=== PATIENT | female | born 1945 | race Caucasian/White ===

== ENCOUNTER 2018-11-17 11:45 | Inpatient (IN) | payer OTHER ==
[2018-11-17 12:23] LABS: ADD MAN DIFF? NO
[2018-11-17 12:29] LABS: BASOPHIL # 0.1 10^3/ul (0.0-0.1); BASOPHILS % 0.9 % (0.0-2.0); EOSINOPHILS % 0.1 % (0.0-7.0); HEMATOCRIT 42.4 % (37.0-47.0); HEMOGLOBIN 13.7 g/dl (12.0-16.0); LYMPHOCYTES # 0.7 10^3/ul (0.8-2.9); LYMPHOCYTES % 6.1 % (15.0-51.0); MEAN CORPUSCULAR HEMOGLOBIN 27.2 pg (29.0-33.0); MEAN CORPUSCULAR HGB CONC 32.3 g/dl (32.0-37.0); MEAN CORPUSCULAR VOLUME 84.1 fl (82.0-101.0); MEAN PLATELET VOLUME 11.6 fl (7.4-10.4); MONOCYTE # 0.6 10^3/ul (0.3-0.9); MONOCYTES % 4.6 % (0.0-11.0); NEUTROPHIL # 10.5 10^3/ul (1.6-7.5); NEUTROPHILS % 87.2 % (39.0-77.0); PLATELET COUNT 136 10^3/UL (140-415); RED BLOOD COUNT 5.04 10^6/ul (4.20-5.40); RED CELL DISTRIBUTION WIDTH 16.1 % (11.5-14.5)
[2018-11-17 12:32] LABS: INR 1.02; PROTIME 13.5 Sec (11.9-14.9); PT RATIO 1.1
[2018-11-17] MEDS: SODIUM CHLORIDE 0.9% 1L BAG IV* (12:32)
[2018-11-17 12:33] LABS: PARTIAL THROMBOPLASTIN TIME 29.2 Sec (23.0-35.0)
[2018-11-17] MEDS: CEFEPIME 2GM/50 ML (PMX) 50 ML IVPB (12:33)
[2018-11-17 12:34] LABS: ALANINE AMINOTRANSFERASE 19 IU/L (13-69); ALBUMIN 3.3 g/dl (3.3-4.9); ALBUMIN/GLOBULIN RATIO 0.89; ALKALINE PHOSPHATASE 133 IU/L (42-121); ANION GAP 11 (5-13); ASPARTATE AMINO TRANSFERASE 28 IU/L (15-46); BILIRUBIN,INDIRECT 0.6 mg/dl (0-1.1); BILIRUBIN,TOTAL 0.6 mg/dl (0.2-1.3); BLOOD UREA NITROGEN 16 mg/dl (7-20); CALCIUM 9.3 mg/dl (8.4-10.2); CARBON DIOXIDE 22 mmol/L (21-31); CHLORIDE 103 mmol/L (97-110); CREATININE 0.69 mg/dl (0.44-1.00); GLUCOSE 165 mg/dl (70-220); POTASSIUM 3.8 mmol/L (3.5-5.1); SODIUM 136 mmol/L (135-144)
[2018-11-17 12:40] LABS: POSITIVE DIFF @See below
[2018-11-17 12:49] LABS: TROPONIN-I 0.662 ng/ml (0.000-0.120)
[2018-11-17 14:05] LABS: ANISOCYTOSIS 1+ (0-0); BAND NEUTROPHILS #M 2.5 10^3/ul (0.0-0.6); BAND NEUTROPHILS % (M) 21 % (0-4); LYMPHOCYTES #M 0.1 10^3/ul (0.8-2.9); LYMPHOCYTES % (M) 1 % (15-51); MICROCYTOSIS 1+ (0-0); MONOCYTE #M 0.2 10^3/ul (0.3-0.9); MONOCYTES % (M) 2 % (0-11); PLATELET ESTIMATE NORMAL; POIKILOCYTOSIS 1+ (0-0); POLYCHROMASIA 1+ (0-0); REACTIVE LYMPHOCYTES #M 0.1 10^3/ul (0.0-0.0); REACTIVE LYMPHOCYTES% (M) 1 % (0-0); SEG NEUT #M 9.3 10^3/ul (1.6-7.5); SEGMENTED NEUTROPHILS (M) % 75 % (39-77); SMUDGE%M 6 % (0-0)
[2018-11-17] MEDS: VANCOMYCIN 1 GM (PMX) 250 ML IVPB (14:07)
[2018-11-17] MEDS: ENOXAPARIN 40 MG/0.4 ML SYG SC (14:08)
[2018-11-17 15:00] LABS: URINE BLOOD (Dip) POC Trace-intact (NEGATIVE); URINE GLUCOSE (Dip) POC Negative (NEGATIVE); URINE KETONES (Dip) POC Trace (NEGATIVE); URINE LEUKOCYTE EST (Dip) POC Negative (NEGATIVE); URINE NITRITE (Dip) POC Negative (NEGATIVE); URINE TOTAL PROTEIN POC 2+ (NEGATIVE)
[2018-11-17 15:19] LABS: ADD UMIC YES; UR ASCORBIC ACID NEGATIVE (NEGATIVE); UR BILIRUBIN (Dip) NEGATIVE (NEGATIVE); UR BLOOD (Dip) NEGATIVE (NEGATIVE); UR CLARITY CLEAR (CLEAR); UR COLOR YELLOW (YELLOW); UR GLUCOSE (Dip) NEGATIVE (NEGATIVE); UR KETONES (Dip) TRACE mg/dL (NEGATIVE); UR LEUKOCYTE ESTERASE (Dip) NEGATIVE Leu/ul (NEGATIVE); UR MUCUS FEW /HPF (NONE SEEN); UR NITRITE (Dip) NEGATIVE (NEGATIVE); UR RBC 1 /HPF (0-5); UR SPECIFIC GRAVITY (Dip) 1.016 (1.003-1.030); UR TOTAL PROTEIN (Dip) 1+ mg/dl (NEGATIVE); UR UROBILINOGEN (Dip) NEGATIVE (NEGATIVE); UR WBC 2 /HPF (0-5)
[2018-11-17 16:53] LABS: LACTIC ACID 0.9 mmol/L (0.5-2.0)
[2018-11-17] MEDS ORDERED: SOD CHLORIDE 0.9% 1,000 ML IV (18:10)
[2018-11-17] MEDS ORDERED: ACETAMINOPHEN 325 MG TAB PO (18:30)
[2018-11-17] MEDS ORDERED: ZOLPIDEM 5 MG TAB PO (18:30)
[2018-11-17] MEDS ORDERED: ONDANSETRON 4 MG INJ IV (18:30)
[2018-11-17] MEDS: SOD CHLORIDE 0.9% 1,000 ML IV (21:16)
[2018-11-18] MEDS ORDERED: LEVOTHYROXINE 75 MCG TAB (05:31)
[2018-11-18] MEDS: LEVOTHYROXINE 75 MCG TAB PO (05:57)
[2018-11-18 06:24] LABS: HEMATOCRIT 35.6 % (37.0-47.0); HEMOGLOBIN 11.3 g/dl (12.0-16.0); MEAN CORPUSCULAR HEMOGLOBIN 27.2 pg (29.0-33.0); MEAN CORPUSCULAR HGB CONC 31.7 g/dl (32.0-37.0); MEAN CORPUSCULAR VOLUME 85.8 fl (82.0-101.0); MEAN PLATELET VOLUME 12.8 fl (7.4-10.4); PLATELET COUNT 131 10^3/UL (140-415); RED BLOOD COUNT 4.15 10^6/ul (4.20-5.40); RED CELL DISTRIBUTION WIDTH 16.4 % (11.5-14.5)
[2018-11-18 06:24] LABS: WHITE BLOOD COUNT 8.6 10^3/ul (4.8-10.8)
[2018-11-18 06:48] LABS: POSITIVE DIFF @See below
[2018-11-18 06:49] LABS: ADD MAN DIFF? YES
[2018-11-18 07:05] LABS: ANION GAP 10 (5-13); BLOOD UREA NITROGEN 14 mg/dl (7-20); CALCIUM 8.5 mg/dl (8.4-10.2); CARBON DIOXIDE 20 mmol/L (21-31); CHLORIDE 111 mmol/L (97-110); CREATININE 0.63 mg/dl (0.44-1.00); GLUCOSE 98 mg/dl (70-220); POTASSIUM 3.2 mmol/L (3.5-5.1); SODIUM 141 mmol/L (135-144)
[2018-11-18] MEDS ORDERED: VANCOMYCIN 1 GM (PMX) 250 ML IVPB (09:00)
[2018-11-18] MEDS ORDERED: VANCOMYCIN IV PER PHARMACY XX (09:00)
[2018-11-18] MEDS ORDERED: CEFTRIAXONE 1 GM/50 ML (PMX) 50 ML IVPB (09:00)
[2018-11-18 09:40] LABS: TROPONIN-I 0.362 ng/ml (0.000-0.120)
[2018-11-18] MEDS: ACETAMINOPHEN 325 MG TAB PO (10:10)
[2018-11-18] MEDS: POTASSIUM CHLORIDE (SR) 20 MEQ TAB PO (10:11)
[2018-11-18 10:27] LABS: ANISOCYTOSIS 1+ (0-0); BAND NEUTROPHILS #M 0.6 10^3/ul (0.0-0.6); BAND NEUTROPHILS % (M) 7 % (0-4); BURR CELLS 1+ (0-0); LYMPHOCYTES #M 0.7 10^3/ul (0.8-2.9); LYMPHOCYTES % (M) 9 % (15-51); MONOCYTE #M 0.5 10^3/ul (0.3-0.9); MONOCYTES % (M) 6 % (0-11); MYELOCYTES % (M) 1 % (0-0); PLATELET ESTIMATE NORMAL; REACTIVE LYMPHOCYTES% (M) 1 % (0-0); SEG NEUT #M 6.6 10^3/ul (1.6-7.5); SEGMENTED NEUTROPHILS (M) % 76 % (39-77); SMUDGE%M 12 % (0-0)
[2018-11-18] MEDS: POTASSIUM CHLORIDE 30 MEQ in SOD CHLORIDE 0.9% 1,000 ML IV ×2 (10:52→23:02)
[2018-11-18] MEDS: ASPIRIN 81 MG TAB PO (13:02)
[2018-11-18] MEDS: VANCOMYCIN 750 MG (PMX) 250 ML IVPB (14:03)
[2018-11-19] MEDS: ASPIRIN 81 MG TAB PO (08:12)
[2018-11-19] MEDS: LEVOTHYROXINE 75 MCG TAB PO (08:12)
[2018-11-19] MEDS: POTASSIUM CHLORIDE 30 MEQ in SOD CHLORIDE 0.9% 1,000 ML IV (12:34)
[2018-11-19] MEDS: VANCOMYCIN 750 MG (PMX) 250 ML IVPB (15:16)
[2018-11-20] MEDS: POTASSIUM CHLORIDE 30 MEQ in SOD CHLORIDE 0.9% 1,000 ML IV ×2 (02:06→15:38)
[2018-11-20] MEDS: LEVOTHYROXINE 75 MCG TAB PO (07:11)
[2018-11-20 07:16] LABS: ANION GAP 6 (5-13); BLOOD UREA NITROGEN 9 mg/dl (7-20); CALCIUM 8.3 mg/dl (8.4-10.2); CARBON DIOXIDE 21 mmol/L (21-31); CHLORIDE 115 mmol/L (97-110); CREATININE 0.58 mg/dl (0.44-1.00); GLUCOSE 104 mg/dl (70-220); POTASSIUM 4.1 mmol/L (3.5-5.1); SODIUM 142 mmol/L (135-144)
[2018-11-20] MEDS: ASPIRIN 81 MG TAB PO (09:06)
[2018-11-20] MEDS ORDERED: LIDOCAINE 1% (MPF) 5 ML VIAL SC (11:30)
[2018-11-20 13:59] LABS: VANCOMYCIN,TROUGH 8.4 ug/ml (10.0-20.0)
[2018-11-20] MEDS: VANCOMYCIN 1 GM 250 ML IVPB (15:39)
[2018-11-20] MEDS: CEFTRIAXONE 1 GM/50 ML (PMX) 50 ML IVPB (17:50)
[2018-11-20] MEDS: ATORVASTATIN 20 MG TAB PO (21:28)
[2018-11-20] MEDS: LACTOBACILLUS RHAMNOSUS CAP PO (21:28)
[2018-11-21] MEDS: POTASSIUM CHLORIDE 30 MEQ in SOD CHLORIDE 0.9% 1,000 ML IV ×2 (05:10→11:22)
[2018-11-21] MEDS: LEVOTHYROXINE 75 MCG TAB PO (06:12)
[2018-11-21] MEDS: ACETAMINOPHEN 325 MG TAB PO ×2 (06:19→11:33)
[2018-11-21] MEDS: ASPIRIN 81 MG TAB PO (07:53)
[2018-11-21] MEDS: LACTOBACILLUS RHAMNOSUS CAP PO (07:54)
== END 2018-11-21 16:20 | DRG 871 ==
LOC: E/R 11:45 → 6WM 18:11
DX: A41.9 Sepsis, unspecified organism (principal); G93.41 Metabolic encephalopathy; I38 Endocarditis, valve unspecified; E44.0 Moderate protein-calorie malnutrition; Z68.1 Body mass index [BMI] 19.9 or less, adult; E87.5 Hyperkalemia; E03.9 Hypothyroidism, unspecified
CPT/HCPCS: 36415; 36569; 71045; 76937; 80048; 80053; 80202; 81001; 81003; 82962; 83605; 84484; 85025; 85610; 85730; 87040-91; 87086; 87400; 93005; 93306; 93970; 96372; 96374; 96375; 97162; 99217; 99285-25; G0378